=== PATIENT | male | born 1970 | race Two or more races ===

== ENCOUNTER 2024-05-13 13:34 | Outpatient (AMB) | payer OTHER, SELFPAY ==
--- NOTE | 2024-05-13 13:38 | AM.OFFWIN_ITS ---
Intake Vital Signs 05/13/24 13:42 Height 5 ft 11 in Weight 360 lb BMI 50.2 BP 146/90 H Blood Pressure Location Lt brachial Position Sitting Pulse 86 Pulse Source Pulse Oximeter Pulse Oximetry (%) 98 Oxygen Delivery Method Room Air Intake Visit Reasons: [employer]-Blood pressure med Allergies No Known Allergies [No Known Allergies*] Allergy (Verified 05/13/24 13:54) Medication List - Last Reconciled 05/13/24 [facility] mg PO DAILY Do you need a note to return to daycare/school/sports/work: Yes HPI HPI Comments History of Present Illness Details History of Present Illness 54-year-old male here today with his with past medical history significant for hypertension. He was in between primary care providers. His blood pressure has been well managed on hydrochlorothiazide 25 mg daily. Unfortunately he has been out of this medication for 1 week and his blood pressure has increased. He denies any neuro or cardiac complaints. He was primary care appointment is scheduled for October at [facility]. Physical Exam General: Well developed, well nourished, in no acute distress. Appears stated age. Head: Normocephalic, atraumatic. Eyes: Pupils are equal, round and reactive to light and accommodation. Lungs: Clear to auscultation bilaterally. No rales, rhonchi or wheeze noted. Good air flow in all talley. Heart: Regular rate and rhythm. No murmurs, click, rubs or gallops are noted. Extremities: No clubbing, cyanosis nor edema is noted. Psych: Mood and affect appropriate Results Discussion Notes During the visit, we discussed the issue of medication refill for hypertension management. I assured the patient about providing a three-month supply of hydrochlorothiazide along with a six-month refill to ensure ongoing management of his essential hypertension. We had a conversation regarding the difficulties in obtaining an earlier appointment; however, efforts will continue to check for cancellations. It was advised to begin the treatment regimen immediately and to maintain communication for any issues arising with the medication or concerning symptoms. I ensured any other queries or potential urgent needs could be addressed via an urgent care facility if necessary. Assessment and Plan 1. Essential Hypertension: The patient's essential hypertension is currently managed with hydrochlorothiazide, which he states maintains his blood pressure at a satisfactory level, though not optimally controlled. A prescription for a three-month supply with a six-month refill was provided to ensure continuity of care. The patient is encouraged to maintain daily compliance and will be monitored closely with efforts to secure an earlier follow-up appointment to reassess his condition. Patient Instructions - Begin taking the prescribed blood pres sure medication today. - Continue taking hydrochlorothiazide on ce daily as directed. - Keep monitoring your blood pressure re gularly. - Reach out if you experience any concer ns or need further assistance. - Continue attempting to schedule an ear ly follow-up appointment. Consent Patient was informed and verbally consented to the use of an ambient scribe for clinic note documentation during this visit. Physical Exam Vital Signs: Last Vital Signs Pulse 86 05/13/24 13:42 BP 146/90 H 05/13/24 13:42 Pulse Ox 98 05/13/24 13:42 Oxygen Delivery Method Room Air 05/13/24 13:42 BMI result Body Mass Index 50.2 Assessment & Plan Assessment & Plan (1) HTN (hypertension): Code(s): I10 - Essential (primary) hypertension Qualifiers: Hypertension type: primary hypertension Qualified Code(s): I10 - Essential (primary) hypertension (2) Morbid obesity with BMI of 50.0-59.9, adult: Code(s): E66.01 - Morbid (severe) obesity due to excess calories; Z68.43 - Body mass index [BMI] 50.0-59.9, adult Plan . Medications: Refilled hydrochlorothiazide 25 mg PO DAILY 90 tabs 1RF Coding Level of Care Code Est Pt Level 3 (58934) Diagnoses Primary hypertension I10 Hypertension type: primary hypertension Morbid obesity with BMI of 50.0-59.9, adult E66.01; Z68.43
[2024-05-13 13:42] VITALS: BP 146/90; PULSE 86; O2SAT 98; BMI 50.2
== END 2024-05-13 13:59 | disposition home or self-care (01) ==
LOC: HO.HMCWIC 13:34
PROVIDERS: Visit Provider Nurse Practitioner Family
DX: I10 Essential (primary) hypertension (principal); E66.01 Morbid (severe) obesity due to excess calories; Z68.43 Body mass index [BMI] 50.0-59.9, adult

== ENCOUNTER → 2024-05-13 13:34 | Outpatient (BNVA) | payer OTHER, SELFPAY | PROVIDERS: Visit Provider Nurse Practitioner Family ==

== ENCOUNTER 2024-11-03 13:49 | Outpatient (AMB) | payer BC, SELFPAY ==
--- NOTE | 2024-11-03 14:03 | A.OFFPC_ITS ---
Vital Signs 11/03/24 14:04 Height 5 ft 11 in BP 134/70 Blood Pressure Location Lt brachial Position Sitting Respiration 16 Pulse 88 Pulse Source Pulse Oximeter Temp 97.9 F Temp Source Oral Pulse Oximetry (%) 94 Oxygen Delivery Method Room Air Intake Visit Reasons: 1st Visit, [employer]sp[employer] Required: No Accompanied by: Self / Same As Patient Allergies No Known Allergies (No Known Allergies*) Allergy (Verified 11/03/24 14:27) Medication List - Last Reconciled 11/03/24 by GRETCHEN Hair hydrochlorothiazide 25 mg PO DAILY Tobacco use date assessed: 11/03/24 Dental Screening Dental Screen Date: 11/03/24 Did you have a dental visit in the last 12 months?: Yes Did you have a dental problem in the last 6 months where you did not have access to dental care?: No Was dental information given to patient?: Patient has dentist HPI 1st Visit, [employer] HPI Details The patient is presenting to reestablish care. He is accompanied by his . Previous PCP: Ronnie Last visit: couple years Last PE: year ago to be able to go back to work Specialist: no OBGYN:n/a Past medical history: Depression, ARLENE, right carpal tunnel surgery that did not work. Hence, he did not follow through with the left hand. HTN Medications: Family HX: maternal grandfather from prostate ca, dementia maternal grandmother, Problem: The patient is a 54-year-old male presenting for a wellness visit and management of chronic conditions. The patient has a history of hypertension, currently managed with hydrochlorothiazide 25 mg daily. He reports no allergies and that he was under the care of Dr. Trujillo previously. He has not followed up in a long time, so now he needs to reestablish care. The patient has a past diagnosis of depression, which was treated approximately 11 years ago. He is not currently seeing a mental health professional and reports doing okay without medication initially. However, his verbalized that the patient has been depressed but he is down playing it. The patient reports using an old CPAP machine for sleep apnea, but it may require adjustment as he continues to experience daytime fatigue and frequent awakenings at night. He has not followed up with sleep medicine for several years. The patient is reports given up to urinate about 3 times a night, but denies any significant urinary symptoms during the day. He underwent carpal tunnel surgery on the right hand several years ago, which did not alleviate symptoms, and he has opted not to pursue surgery on the left hand. Family history includes diabetes and dementia on the maternal side, with a grandfather who had prostate cancer. [facility] Medical History (Updated 11/05/24 @ 01:29 by GRETCHEN Hair) Depression Sleep apnea HTN (hypertension) Nocturia Carpal tunnel syndrome Family History (Updated 11/05/24 @ 01:20 by GRETCHEN Hair) Maternal Grandfather Prostate CA Maternal Grandmother Dementia Social History Household Members: Spouse Housing: House Alcohol intake: current Patient Tobacco Use Status: Never used Tobacco e-Cigarette/Vaping Use: Currently Using Current occupational status: employed Current occupation: Client Relationship Consultant Cognitive needs: No Hearing needs: No Vision needs: Yes Questionnaire PHQ-9 Over the last 2 weeks, how often have you been bothered by any of the following problems? 1. Little interest or pleasure in doing things: several days 2. Feeling down, depressed, or hopeless: more than half the days 3. Trouble falling or staying asleep, or sleeping too much: nearly every day 4. Feeling tired or having little energy: nearly every day 5. Poor appetite or overeating: not at all 6. Feeling bad about yourself - or that you are a failure or have let yourself or your family down: not at all 7. Trouble concentrating on things, such as reading the newspaper or watching television: not at all 8. Moving or speaking so slowly that other people could have noticed. Or the opposite - being so fidgety or restless that you have been moving around a lot more than usual: not at all 9. Thoughts that you would be better off or of hurting yourself in some way: not at all Total score: 9 Source: Developed by Drs. Mina Ma, Mirella Yan, Naif Figueredo and colleagues, with an educational cassy from [employer]. Thrive Questionnaire I am a: Patient What is your living situation today?: I have a steady place to live Within the past 12 months, did the food you bought not last and you didn't have the money to get more?: Never true Within the past 12 months, did you worry whether your food would run out before you got money to buy more?: Never true Do you have trouble paying for medicines?: No Do you have trouble getting transportation to medical appointments?: No Do you have trouble paying your heating and electricity bill?: No Do you have trouble taking care of your child, family member or friend?: No Do you have trouble with day-to-day activities such as bathing, preparing meals, shopping, managing finances, etc.?: No Are you currently unemployed and looking for a job?: No Are you interested in more education?: No Please select the resources that you would like help with: None Currently or been in a relationship where the following occur: No concerns reported THRIVE Score: 0 AUDIT C Alcohol Use Questionnaire (AUDIT-C) 1. How often do you have a drink containing alcohol?: Never Total Score: 0 SARWAT-7 AMB Questionnaire SARWAT-7 Feeling nervous, anxious, or on edge: 0 = Not at all Not being able to stop or control worryin = Not at all Worrying too much about different things: 1 = Several days Trouble relaxin = Nearly every day Being so restless that it is hard to sit still: 0 = Not at all Becoming easily annoyed or irritable: 3 = Nearly every day Feeling afraid as if something awful might happen: 0 = Not at all Total SARWAT-7 score (0-4 normal; 5-9 mild; 10-14 moderate; 15-21 severe): 7 Source: Developed by Drs. Mina Ma, Mirella Yan, Naif Figueredo and colleagues, with an educational cassy from [employer]. Review of Systems Const Reports daytime sleepiness, Reports difficulty sleeping, Reports fatigue, Denies headache(s) and Reports lethargy Eyes Denies loss of vision ENT Denies vertigo, Denies dizziness, Denies headache(s) and Denies sore throat Card Denies chest pain, Denies leg edema and Denies lightheadedness Resp Denies cough, Denies hemoptysis and Denies wheezing GI Denies abdominal pain, Denies melena, Denies constipation, Reports heartburn (occasional ), Denies diarrhea and Denies vomiting Denies dysuria, Reports nocturia, Denies urinary frequency and Denies urinary urgency Musc Denies arthralgias, Denies joint swelling, Reports numbness (lateral aspect of right foot only-on and off) and Denies tingling Neuro Denies Abnormal speech present, Denies behavioral changes, Denies vertigo, Denies dizziness, Denies headache(s), Denies loss of vision, Denies memory loss, Reports numbness (lateral aspect of right foot only-on and off) and Denies tingling Psych Denies anxiety, Denies behavioral changes, Reports depression, Denies memory loss and Denies panic attacks Endo Reports fatigue Garett/Lymph Denies easy bleeding and Denies easy bruising Aller/Immun Denies wheezing Physical exam (Primary Care) Vital Signs: Last Vital Signs BP 134/70 11/03/24 14:04 Pulse Ox 94 11/03/24 14:04 Tobacco/Smoking Status: Tobacco use Status Tobacco use date assessed 11/03/24 11/03/24 14:13 Patient Tobacco Use Status Never used Tobacco 11/03/24 14:13 Tobacco use type 11/03/24 14:13 e-Cigarette/Vaping Use Currently Using 11/03/24 14:13 PHQ-9: PHQ-9 Score PHQ-9: Total score 9 11/03/24 14:34 Currently or been in a relationship where the following occur: No concerns reported Const General: healthy appearing, no acute distress, alert and awake Nutritional Appearance: well nourished Orientation/consciousness: oriented to person, oriented to place and oriented to time HENMT Ears: TM's normal bilaterally General nose exam: Normal nasal mucous membranes and turbinates present Eyes Conjunctivae: conjunctivae normal Sclerae: sclerae normal Pupils: Equal, round and reactive pupils present Neck Neck: Yes no lymphadenopathy and Yes no JVD Thyroid: Thyroid normal Carotids: no bruits Resp Effort & Inspection: normal respiratory effort and not tachypneic Auscultation: no crackles, no rales, no rhonchi and no wheezes Cardio Rate: regular rate Rhythm: regular rhythm Heart sounds: no murmurs and normal S1 and S2 GI Palpation (GI): Soft to palpation, nontender, no hepatomegaly and no splenomegaly Auscultation: normal bowel sounds Skin General skin exam: no rashes or lesions noted and dry skin Neuro General: oriented to person, oriented to place and oriented to time Cranial nerves: Yes Equal, round and reactive pupils present Speech: No Abnormal speech present Gait exam (Neuro): Normal gait present Motor exam (neuro): no tremor noted Extrem Right upper extremity: full ROM Left upper extremity: full ROM Right lower extremity: full ROM; no edema Left lower extremity: full ROM; no edema Psych Mental Status: mental status grossly normal Speech and movement: Normal speech and movement present Affect: normal affect Attitude: cooperative Thought process: Normal thought process present Coding Level of Care Code New Pt Level 4 (44124) Diagnoses Depression, unspecified depression type F32.A Depression Type: unspecified Primary hypertension I10 Hypertension type: primary hypertension Morbid obesity with BMI of 50.0-59.9, adult E66.01; Z68.43 Numbness of right foot R20.0 Sleep apnea, unspecified type G47.30 Sleep apnea type: unspecified type Fatigue, unspecified type R53.83 Fatigue type: unspecified Time Spent (min) 41 Assessment & Plan Assessment & Plan (1) Depression: Code(s): F32.A - Depression, unspecified Category: Medical Qualifiers: Depression Type: unspecified Qualified Code(s): F32.A - Depression, unspecified Plan: Patient was started on sertraline 50 mg daily Counseling referral placed Follow up in 4 weeks for re-evaluation (2) HTN (hypertension): Code(s): I10 - Essential (primary) hypertension Category: Medical Qualifiers: Hypertension type: primary hypertension Qualified Code(s): I10 - Esswilfred tial (primary) hypertension Plan: Blood pressure 134/70-systolic goal less than 140 mm hg Reinforced low-salt diet and activity as tolerated Continue hydrochlorothiazide 25 mg daily (3) Morbid obesity with BMI of 50.0-59.9, adult: Code(s): E66.01 - Morbid (severe) obesity due to excess calories; Z68.43 - Body mass index [BMI] 50.0-59.9, adult Category: Medical Plan: Encouraged to exercise for at least 30 minutes a day/5 days a week Healthy eating discussed. Encouraged to eat fruits/vegetables, protein- fish/baked chicken, and to avoid salty/fried foods, sweets, caffeine and carbohydrates. Encouraged to increase water intake 6-8 glasses a day (4) Numbness of right foot: Code(s): R20.0 - Anesthesia of skin Category: Medical Plan: Lateral side of right foot intermittently gets a numbing sensation. Normal foot exam, +CMS, pedal pulse, no edema or discoloration. Suspect that this is being caused by compression. Will continue monitoring (5) Sleep apnea: Code(s): G47.30 - Sleep apnea, unspecified Category: Medical Qualifiers: Sleep apnea type: unspecified type Qualified Code(s): G47.30 - Sleep apnea, unspecified Plan: Longstanding hx of sleep apnea-reports using old machine that has been ineffective. In-home sleep study ordered, sleep medicine referral placed as well. (6) Fatigue: Code(s): R53.83 - Other fatigue Category: Medical Qualifiers: Fatigue type: unspecified Qualified Code(s): R53.83 - Other fatigue Plan: Suspect sleep apnea, however, will check the patient testosterone as well. The patient reports that this was low in the past. Orders: Orders Testosterone, Free/Total 11/03/24 E66.01 - Morbid (severe) obesity due to excess calories, G47.30 - Sleep apnea, unspecified, I10 - Essential (primary) hypertension, R20.0 - Anesthesia of skin, R35.1 - Nocturia, R53.83 - Other f atigue, Z68.43 - Body mass index [BMI] 50.0-59.9, adult Complete Blood Count Auto Diff 11/03/24 E66.01 - Morbid (severe) obesity due to excess calories, G47.30 - Sleep apnea, unspecified, I10 - Essential (primary) hypertension, R20.0 - Anesthesia of skin, R35.1 - Nocturia, R53.83 - Other fatigue, Z68.43 - Body mass index [BMI] 50.0-59.9, adult Comprehensive [place]. Panel Fast 11/03/24 E66.01 - Morbid (severe) obesity due to excess calories, G47.30 - Sleep apnea, unspecified, I10 - Essential (primary) hypertension, R20.0 - Anesthesia of skin, R35.1 - Nocturia, R53.83 - Other fatigue, Z68.43 - Body mass index [BMI] 50.0-59.9, adult Hemoglobin A1c 11/03/24 E66.01 - Morbid (severe) obesity due to excess calories, G47.30 - Sleep apnea, unspecified, I10 - Essential (primary) hypertension, R20.0 - Anesthesia of skin, R35.1 - Nocturia, R53.83 - Other fatigue, Z68.43 - Body mass index [BMI] 50.0-59.9, adult PSA,Total (Free>4and<10) 11/03/24 E66.01 - Morbid (severe) obesity due to excess calories, G47.30 - Sleep apnea, unspecified, I10 - Essential (primary) hypertension, R20.0 - Anesthesia of skin, R35.1 - Nocturia, R53.83 - Other fatigue, Z68.43 - Body mass index [BMI] 50.0-59.9, adult TSH reflex Free T4 11/03/24 E66.01 - Morbid (severe) obesity due to excess calories, G47.30 - Sleep apnea, unspecified, I10 - Essential (primary) hypertension, R20.0 - Anesthesia of skin, R35.1 - Nocturia, R53.83 - Other fatigue, Z68.43 - Body mass index [BMI] 50.0-59.9, adult UA CC w/rflx Micro + Cult 11/03/24 E66.01 - Morbid (severe) obesity due to excess calories, G47.30 - Sleep apnea, unspecified, I10 - Essential (primary) hypertension, R20.0 - Anesthesia of skin, R35.1 - Nocturia, R53.83 - Other fatigue, Z68.43 - Body mass index [BMI] 50.0-59.9, adult Free T4 (Free Thyroxine) 11/03/24 E66.01 - Morbid (severe) obesity due to excess calories, G47.30 - Sleep apnea, unspecified, I10 - Essential (primary) hypertension, R20.0 - Anesthesia of skin, R35.1 - Nocturia, R53.83 - Other fatigue, Z68.43 - Body mass index [BMI] 50.0-59.9, adult Lipid Panel 11/03/24 E66.01 - Morbid (severe) obesity due to excess calories, G47.30 - Sleep apnea, unspecified, I10 - Essential (primary) hypertension, R20.0 - Anesthesia of skin, R35.1 - Nocturia, R53.83 - Other fatigue, Z68.43 - Body mass index [BMI] 50.0-59.9, adult Vitamin D 25-OH Total 11/03/24 E66.01 - Morbid (severe) obesity due to excess calories, G47.30 - Sleep apnea, unspecified, I10 - Essential (primary) hypertension, R20.0 - Anesthesia of skin, R35.1 - Nocturia, R53.83 - Other fatigue, Z68.43 - Body mass index [BMI] 50.0-59.9, adult Vitamin B12 and Folate 11/03/24 E66.01 - Morbid (severe) obesity due to excess calories, G47.30 - Sleep apnea, unspecified, I10 - Essential (primary) hypertension, R20.0 - Anesthesia of skin, R35.1 - Nocturia, R53.83 - Other fatigue, Z68.43 - Body mass index [BMI] 50.0-59.9, adult RT home sleep study 11/03/24 G47.30 - Sleep apnea, unspecified Referrals Sleep Medicine Referral G47.30 - Sleep apnea, unspecified Counseling Referral F32.A - Depression, unspecified Medications: New sertraline 50 mg PO DAILY 30 tabs 3RF Refilled hydrochlorothiazide 25 mg PO DAILY 90 tabs 3RF
[2024-11-03 14:04] VITALS: BP 134/70; PULSE 88; RESP 16; TEMP 36.6; O2SAT 94
== END 2024-11-03 15:15 | disposition home or self-care (01) ==
LOC: HO.HMCH 13:50
DX: F32.A Depression, unspecified (principal); I10 Essential (primary) hypertension; E66.01 Morbid (severe) obesity due to excess calories; Z68.43 Body mass index [BMI] 50.0-59.9, adult; R20.0 Anesthesia of skin; G47.30 Sleep apnea, unspecified; R53.83 Other fatigue

== ENCOUNTER 2024-11-03 13:49 | Outpatient (REF) | payer OTHER, SELFPAY ==
[2024-11-03 15:50] LABS: MANUAL DIFF FLAG NO
[2024-11-03 16:14] LABS: Hematocrit 43.1 % (42.0-52.0); Hemoglobin 14.3 g/dl (14.0-18.0); Imm Gran Abs Auto 0.01 X10*3/uL (0.00-0.03); Imm Gran Pct Auto 0.2 % (0.0-0.4); Lymphocytes Absolute Auto 1.7 X10*3/uL (1.2-4.9); Mean Corpuscular HGB Conc 33.2 g/dl (31.0-36.0); Mean Corpuscular Hemoglobin 27.3 pg (27.0-33.0); Mean Corpuscular Volume 82.3 fL (80.0-98.0); NRBC Abs Auto 0.000 X10*3/uL (0.0-0.012); NRBC Pct Auto 0.0 /100WBC (0.0-0.2); Platelet Count 230 X10*3/uL (160-400); Red Blood Count 5.24 X10*6/uL (4.60-5.80); White Blood Count 4.9 X10*3/uL (4.8-10.8)
[2024-11-03 16:26] LABS: Total Hemoglobin (HGBA1C) 3627.2455 umol/L
[2024-11-03 16:42] LABS: Appearance Urine Clear; Glucose Urine UA Negative (Negative); PH 5.5 (5.0-9.0); Specific Gravity - Urine 1.015 (1.005-1.025)
[2024-11-03 16:45] LABS: Alanine Aminotransferase 40 U/L (0-40); Albumin Level 4.5 g/dL (3.5-5.0); Alkaline Phosphatase 66 U/L (39-117); Anion Gap 12 (12-20); Aspartate Amino Transferase 38 U/L (5-37); Blood Urea Nitrogen 10 mg/dL (9-16); Calcium 9.3 mg/dL (8.4-10.2); Carbon Dioxide 28 mmol/L (22-29); Chloride 104 mmol/L (96-108); Cholesterol 158 mg/dL (<200); Estimated Glomerular Filt Rate > 60; HDL Cholesterol 31 mg/dL (>40); Potassium 3.6 mmol/L (3.3-5.1); Sodium 140 mmol/L (135-145); Total Protein 8.0 g/dL (6.5-8.0); Triglycerides 187 mg/dL (<150)
[2024-11-03 17:01] LABS: Free T4 (Free Thyroxine) 0.93 ng/dL (0.71-1.85)
[2024-11-03 17:02] LABS: PSA,Total (Free>4and<10) 0.21 ng/mL (0.00-4.00)
[2024-11-03 17:25] LABS: Folate 15.8 ng/mL (> or = 4.0); Vitamin B12 514 pg/mL (200-900)
[2024-11-09 16:14] LABS: Testosterone, Free 26.7 pg/mL (35.0-155.0)
== END 2024-11-03 13:50 | disposition home or self-care (01) ==
LOC: HO.LAB 13:49
DX: I10 Essential (primary) hypertension (principal); Z12.5 Encounter for screening for malignant neoplasm of prostate; F32.A Depression, unspecified; E66.01 Morbid (severe) obesity due to excess calories; R20.0 Anesthesia of skin; G47.30 Sleep apnea, unspecified; R53.83 Other fatigue; R35.1 Nocturia; Z68.43 Body mass index [BMI] 50.0-59.9, adult
CPT/HCPCS: 36415; 80053; 80061; 81003; 82306; 82607; 82746; 83036; 84153; 84402; 84403; 84439; 84443; 85025; 96127

== ENCOUNTER 2024-12-14 10:53 | Outpatient (AMB) | payer OTHER, SELFPAY ==
[2024-12-14 10:56] VITALS: BP 144/98; PULSE 82; TEMP 36.3; O2SAT 93; BMI 48.9
--- NOTE | 2024-12-14 10:56 | MHC.PC.OV ---
Vital Signs 12/14/24 10:56 12/14/24 11:28 Height 5 ft 11 in Weight 351 lb BMI 48.9 BP 144/98 H 140/86 H Blood Pressure Location Lt brachial Lt brachial Position Sitting Sitting Pulse 82 Pulse Source Pulse Oximeter Temp 97.3 F Temp Source Temporal Artery Scan Pulse Oximetry (%) 93 Oxygen Delivery Method Room Air Intake Visit Reasons: 4 week f/u Accompanied by: Spouse Allergies No Known Allergies (No Known Allergies*) Allergy (Verified 12/14/24 11:03) Tobacco use date assessed: 12/14/24 Dental Screening Dental Screen Date: 12/14/24 Did you have a dental visit in the last 12 months?: Yes Did you have a dental problem in the last 6 months where you did not have access to dental care?: No Was dental information given to patient?: Patient has dentist HPI 4 week f/u HPI Details The patient is a 54-year-old male presenting for a follow-up visit to review lab results and manage chronic conditions. He has a diagnosis of prediabetes, with a recent hemoglobin A1c of 6.2%. His lipid panel shows triglycerides have decreased from 237 to 187 mg/dL, though still above the goal of less than 150 mg/dL. His LDL cholesterol is 90 mg/dL, which is within the normal range but has trended upward from a previous value of 69 mg/dL. His HDL cholesterol has improved from 26 to 31 mg/dL but is still below the desired level of greater than 40 mg/dL. Other laboratory findings include a slightly elevated liver enzyme, low but slightly improved vitamin D levels, and a low testosterone level which is lower than before. His complete blood count, electrolytes, and kidney function are normal. The patient is being treated for hypertension and reports adherence to his medication. He also takes a low dose of sertraline and reports feeling a little better. The patient has lost 9 pounds since his last visit. He reports working long hours six days a week, making it difficult to exercise, though he has an exercise bike at home. He admits to smoking prior to the appointment. He has an appointment scheduled for a sleep study. Family history is significant for a sister who at age 25 from an enlarged heart. 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 1. Little interest or pleasure in doing things: several days 2. Feeling down, depressed, or hopeless: more than half the days 3. Trouble falling or staying asleep, or sleeping too much: nearly every day 4. Feeling tired or having little energy: nearly every day 5. Poor appetite or overeating: not at all 6. Feeling bad about yourself - or that you are a failure or have let yourself or your family down: not at all 7. Trouble concentrating on things, such as reading the newspaper or watching television: not at all 8. Moving or speaking so slowly that other people could have noticed. Or the opposite - being so fidgety or restless that you have been moving around a lot more than usual: not at all 9. Thoughts that you would be better off or of hurting yourself in some way: not at all Total score: 9 Source: Developed by Drs. Mina Ma, Mirella Yan, Naif Figueredo and colleagues, with an educational cassy from [employer]. Thrive Questionnaire Date Thrive assessed: 11/03/24 I am a: Patient What is your living situation today?: I have a steady place to live Within the past 12 months, did the food you bought not last and you didn't have the money to get more?: Never true Within the past 12 months, did you worry whether your food would run out before you got money to buy more?: Never true Do you have trouble paying for medicines?: No Do you have trouble getting transportation to medical appointments?: No Do you have trouble paying your heating and electricity bill?: No Do you have trouble taking care of your child, family member or friend?: No Do you have trouble with day-to-day activities such as bathing, preparing meals, shopping, managing finances, etc.?: No Are you currently unemployed and looking for a job?: No Are you interested in more education?: No Please select the resources that you would like help with: None Currently or been in a relationship where the following occur: No concerns reported THRIVE Score: 0 AUDIT C Alcohol Use Questionnaire (AUDIT-C) 1. How often do you have a drink containing alcohol?: Never 3. How often do you have six or more drinks on one occasion?: Never Total Score: 0 SARWAT-7 AMB Questionnaire SARWAT-7 Date SARWAT - 7 assessed: 11/03/24 Feeling nervous, anxious, or on edge: 0 = Not at all Not being able to stop or control worryin = Not at all Worrying too much about different things: 1 = Several days Trouble relaxin = Nearly every day Being so restless that it is hard to sit still: 0 = Not at all Becoming easily annoyed or irritable: 3 = Nearly every day Feeling afraid as if something awful might happen: 0 = Not at all Total SARWAT-7 score (0-4 normal; 5-9 mild; 10-14 moderate; 15-21 severe): 7 Source: Developed by Drs. Mina Ma, Mirella Yan, Naif Figueredo and colleagues, with an educational cassy from [employer]. Review of Systems Const Reports daytime sleepiness, Reports difficulty sleeping, Reports fatigue, Denies headache(s) and Reports lethargy Eyes Denies loss of vision ENT Denies vertigo, Denies dizziness, Denies headache(s) and Denies sore throat Card Denies chest pain, Denies leg edema and Denies lightheadedness Resp Denies cough, Denies hemoptysis and Denies wheezing GI Denies abdominal pain, Denies melena, Denies constipation, Reports heartburn (occasional ), Denies diarrhea and Denies vomiting Denies dysuria, Reports nocturia, Denies urinary frequency and Denies urinary urgency Musc Denies arthralgias, Denies joint swelling, Reports numbness (lateral aspect of right foot only-on and off) and Denies tingling Neuro Denies Abnormal speech present, Denies behavioral changes, Denies vertigo, Denies dizziness, Denies headache(s), Denies loss of vision, Denies memory loss, Reports numbness (lateral aspect of right foot only-on and off) and Denies tingling Psych Denies anxiety, Denies behavioral changes, Reports depression, Denies memory loss and Denies panic attacks Endo Reports fatigue Garett/Lymph Denies easy bleeding and Denies easy bruising Aller/Immun Denies wheezing Physical exam (Primary Care) Vital Signs: Last Vital Signs Temp 97.3 F 12/14/24 10:56 Pulse 82 12/14/24 10:56 BP 140/86 H 12/14/24 11:28 Pulse Ox 93 12/14/24 10:56 Oxygen Delivery Method Room Air 12/14/24 10:56 BMI result Body Mass Index 48.9 Tobacco/Smoking Status: Tobacco use Status Tobacco use date assessed 12/14/24 12/14/24 11:00 Patient Tobacco Use Status Never used Tobacco 12/14/24 11:00 Tobacco use type 11/03/24 15:12 e-Cigarette/Vaping Use Currently Using 12/14/24 11:00 PHQ-9: PHQ-9 Score PHQ-9: Total score 9 12/14/24 11:29 Thrive Assessment: Date of Thrive Assessment Date Thrive assessed 11/03/24 12/14/24 11:00 Currently or been in a relationship where the following occur: No concerns reported Const General: healthy appearing, no acute distress, alert and awake Nutritional Appearance: well nourished Orientation/consciousness: oriented to person, oriented to place and oriented to time HENMS Ears: TM's normal bilaterally General nose exam: Normal nasal mucous membranes and turbinates present Eyes Conjunctivae: conjunctivae normal Sclerae: sclerae normal Pupils: Equal, round and reactive pupils present Neck Neck: Yes no lymphadenopathy and Yes no JVD Thyroid: Thyroid normal Carotids: no bruits Resp Effort & Inspection: normal respiratory effort and not tachypneic Auscultation: no crackles, no rales, no rhonchi and no wheezes Cardio Rate: regular rate Rhythm: regular rhythm Heart sounds: no murmurs and normal S1 and S2 GI Palpation (GI): Soft to palpation, nontender, no hepatomegaly and no splenomegaly Auscultation: normal bowel sounds Skin General skin exam: no rashes or lesions noted and dry skin Neuro General: oriented to person, oriented to place and oriented to time Cranial nerves: Yes Equal, round and reactive pupils present Speech: No Abnormal speech present Gait exam (Neuro): Normal gait present Motor exam (neuro): no tremor noted Extrem Right upper extremity: full ROM Left upper extremity: full ROM Right lower extremity: full ROM; no edema Left lower extremity: full ROM; no edema Psych Mental Status: mental status grossly normal Speech and movement: Normal speech and movement present Affect: normal affect Attitude: cooperative Thought process: Normal thought process present Results Reviewed Results Reviewed: Laboratory Tests 11/03/24 11/03/24 15:32 15:48 WBC 4.9 RBC 5.24 Hgb 14.3 Hct 43.1 MCV 82.3 MCH 27.3 MCHC 33.2 RDW 13.8 Plt Count 230 Sodium 140 Potassium 3.6 Chloride 104 Carbon Dioxide 28 Anion Gap 12 BUN 10 Creatinine 0.80 Estimated GFR > 60 Fasting Glucose 105 H Estimat Average Glucose 131 Hemoglobin A1c % 6.2 H Calcium 9.3 Total Bilirubin 0.6 AST 38 H ALT 40 Alkaline Phosphatase 66 Total Protein 8.0 Albumin 4.5 Triglycerides 187 H Cholesterol 158 LDL Cholesterol, Calc 90 HDL Cholesterol 31 L Total PSA 0.21 Vitamin B12 514 25-OH Vitamin D Total 26.7 L Folate 15.8 TSH 1.85 Free T4 0.93 Total Testosterone 164 L Fr Testosterone Dialys 26.7 L Urine Color Yellow Urine Appearance Clear Urine pH 5.5 Ur Specific Agate 1.015 Urine Protein Negative Urine Glucose (UA) Negative Urine Ketones Negative Urine Blood Negative Coding Level of Care Code Est Pt Level 4 (00032) Diagnoses Depression, unspecified depression type F32.A Depression Type: unspecified Primary hypertension I10 Hypertension type: primary hypertension Morbid obesity with BMI of 50.0-59.9, adult E66.01; Z68.43 Numbness of right foot R20.0 Sleep apnea, unspecified type G47.30 Sleep apnea type: unspecified type Fatigue, unspecified type R53.83 Fatigue type: unspecified Mixed hyperlipidemia E78.2 Hyperlipidemia type: mixed hyperlipidemia Vitamin D deficiency E55.9 Prediabetes R73.03 Elevated AST (SGOT) R74.01 Time Spent (min) 38 Assessment & Plan Assessment & Plan (1) Depression: Code(s): F32.A - Depression, unspecified Category: Medical Qualifiers: Depression Type: unspecified Qualified Code(s): F32.A - Depression, unspecified Plan: Patient was started on sertraline 50 mg daily.The patient reports feeling only a little better on his current low dose of sertraline. The dose will be increased to 100 mg daily to improve efficacy. Counseling referral was placed, decides to hold off on this at follow appt. We will continue to monitor (2) HTN (hypertension): Code(s): I10 - Essential (primary) hypertension Category: Medical Qualifiers: Hypertension type: primary hypertension Qualified Code(s): I10 - Essential (primary) hypertension Plan: The patient's blood pressure remains elevated at 140/86 mmHg despite current therapy. It is anticipated that treatment for suspected sleep apnea will improve blood pressure control. In the interim, losartan will be added for better control and for its kidney-protective effects. This approach of adding a second low-dose agent is preferred over increasing the dose of the current medication to minimize potential side effects. The medication may be tapered off if blood pressure improves after sleep apnea treatment. Reinforced low-salt diet and activity as tolerated Continue hydrochlorothiazide 25 mg daily, and start losartan 50 mg daily (3) Morbid obesity with BMI of 50.0-59.9, adult: Code(s): E66.01 - Morbid (severe) obesity due to excess calories; Z68.43 - Body mass index [BMI] 50.0-59.9, adult Category: Medical Plan: Encouraged to exercise for at least 30 minutes a day/5 days a week Healthy eating discussed. Encouraged to eat fruits/vegetables, protein-fish/baked chicken, and to avoid salty/fried foods, sweets, caffeine and carbohydrates. Encouraged to increase water intake 6-8 glasses a day (4) Numbness of right foot: Code(s): R20.0 - Anesthesia of skin Category: Medical Plan: Lateral side of right foot intermittently gets a numbing sensation. Normal foot exam, +CMS, pedal pulse, no edema or discoloration. Suspect that this is being caused by compression. Will continue monitoring (5) Sleep apnea: Code(s): G47.30 - Sleep apnea, unspecified Category: Medical Qualifiers: Sleep apnea type: unspecified type Qualified Code(s): G47.30 - Sleep apnea, unspecified Plan: Longstanding hx of sleep apnea-reports using old machine that has been ineffective. In-home sleep study ordered, sleep medicine referral placed as well. Awaiting evaluation. (6) Fatigue: Code(s): R53.83 - Other fatigue Category: Medical Qualifiers: Fatigue type: unspecified Qualified Code(s): R53.83 - Other fatigue Plan: Suspect sleep apnea, however, testosterone level was low. Encouraged increasing physical activity and losing some weight to naturally increase testosterone. (7) HLD (hyperlipidemia): Code(s): E78.5 - Hyperlipidemia, unspecified Category: Medical Qualifiers: Hyperlipidemia type: mixed hyperlipidemia Qualified Code(s): E78.2 - Mixed hyperlipidemia Plan: Although triglycerides have improved, they remain elevated, and LDL cholesterol has trended upward. The patient was counseled on dietary modifications, including reducing sweets, carbs, processed foods, fried foods, red meat, and shellfish. Lifestyle changes including weight loss and exercise are the primary management strategy. (8) Vitamin D deficiency: Code(s): E55.9 - Vitamin D deficiency, unspecified Category: Medical Plan: The patient's vitamin D level remains low. He will be started on vitamin D supplementation of 25 mcg (1000 IU) daily. An attempt will be made to prescribe it to determine insurance coverage, but he was advised it is also available [id number]. (9) Prediabetes: Code(s): R73.03 - Prediabetes Category: Medical Plan: With a hemoglobin A1c of 6.2%, the patient is counseled on the importance of preventing progression to diabetes through lifestyle changes. The decision was made to hold off on initiating metformin to avoid polypharmacy, with a plan to focus on diet and exercise. Labs will be rechecked in 3 months to monitor progress. (10) Elevated AST (SGOT): Code(s): R74.01 - Elevation of levels of liver transaminase levels Category: Medical Plan: AST mildly elevated. Avoid alcohol, medications containing Tylenol or acetaminophen, fatty foods. Work on losing weight. Orders: Orders UA CC w/rflx Micro + Cult 3 Months E55.9 - Vitamin D deficiency, unspecified, E66.01 - Morbid (severe) obesity due to excess calories, E78.5 - Hyperlipidemia, unspecified, F32.A - Depression, unspecified, I10 - Essential (primary) hypertension, Z68.43 - Body mass index [BMI] 50.0-59.9, adult TSH reflex Free T4 3 Months E55.9 - Vitamin D deficiency, unspecified, E66.01 - Morbid (severe) obesity due to excess calories, E78.5 - Hyperlipidemia, unspecified, F32.A - Depression, unspecified, I10 - Essential (primary) hypertension, Z68.43 - Body mass index [BMI] 50.0-59.9, adult Vitamin D 25-OH Total 3 Months E55.9 - Vitamin D deficiency, unspecified, E66.01 - Morbid (severe) obesity due to excess calories, E78.5 - Hyperlipidemia, unspecified, F32.A - Depression, unspecified, I10 - Essential (primary) hypertension, Z68.43 - Body mass index [BMI] 50.0-59.9, adult Hemoglobin A1c 3 Months E55.9 - Vitamin D deficiency, unspecified, E66.01 - Morbid (severe) obesity due to excess calories, E78.5 - Hyperlipidemia, unspecified, F32.A - Depression, unspecified, I10 - Essential (primary) hypertension, Z68.43 - Body mass index [BMI] 50.0-59.9, adult Comprehensive Met. Panel 3 Months E55.9 - Vitamin D deficiency, unspecified, E66.01 - Morbid (severe) obesity due to excess calories, E78.5 - Hyperlipidemia, unspecified, F32.A - Depression, unspecified, I10 - Essential (primary) hypertension, Z68.43 - Body mass index [BMI] 50.0-59.9, adult Comprehensive [place]. Panel Fast 3 Months E55.9 - Vitamin D deficiency, unspecified, E66.01 - Morbid (severe) obesity due to excess calories, E78.5 - Hyperlipidemia, unspecified, F32.A - Depression, unspecified, I10 - Essential (primary) hypertension, Z68.43 - Body mass index [BMI] 50.0-59.9, adult Lipid Panel 3 Months E55.9 - Vitamin D deficiency, unspecified, E66.01 - Morbid (severe) obesity due to excess calories, E78.5 - Hyperlipidemia, unspecified, F32.A - Depression, unspecified, I10 - Essential (primary) hypertension, Z68.43 - Body mass index [BMI] 50.0-59.9, adult Medications: New sertraline 100 mg PO DAILY 30 tabs 3RF losartan 50 mg PO DAILY 30 tabs 3RF sertraline 100 mg PO DAILY 30 tabs 3RF cholecalciferol (vitamin D3) 25 mcg PO DAILY 90 caps 3RF Discontinued sertraline Discontinued Reason: Duplicate 50 mg PO DAILY 30 tabs 3RF
[2024-12-14 11:28] VITALS: BP 140/86
== END 2024-12-14 11:45 | disposition home or self-care (01) ==
LOC: HO.HMCH 10:54
DX: F32.A Depression, unspecified (principal); I10 Essential (primary) hypertension; E66.01 Morbid (severe) obesity due to excess calories; Z68.43 Body mass index [BMI] 50.0-59.9, adult; R20.0 Anesthesia of skin; G47.30 Sleep apnea, unspecified; R53.83 Other fatigue; E78.2 Mixed hyperlipidemia; E55.9 Vitamin D deficiency, unspecified; R73.03 Prediabetes; R74.01 Elevation of levels of liver transaminase levels